=== PATIENT | female | born 1985 ===

== ENCOUNTER 2021-04-14 07:46 | Day surgery (SDC) | payer OTHER ==
[~2021-04-14 07:46] MED LIST: ACETAMINOPHEN 500 MG TAB PO SCH; CELECOXIB 200 MG CAP PO NR; GABAPENTIN 300 MG CAP PO NR; LACTATED RINGERS 1,000 ML IV SCH; MIDAZOLAM 2 MG/2 ML INJ IV NR; SCOPOLAMINE TRANSDERMAL PATCH 72 HR TD NR
[2021-04-14] MEDS ORDERED: LIDOCAINE MPF (2%) 20 MG/1 ML VIAL 5 ML ONE (09:08)
[2021-04-14] MEDS ORDERED: fentaNYL 100 MCG/2 ML INJ ONE (09:08)
[2021-04-14] MEDS ORDERED: propofoL 200 MG/20 ML VIAL IV ONE (09:09)
[2021-04-14] MEDS ORDERED: HYDROmorphone 1 MG/1 ML INJ IV PRN (09:11)
[2021-04-14] MEDS ORDERED: ONDANSETRON 4 MG/2 ML INJ IV PRN (09:11)
--- NOTE | 2021-04-14 09:11 | Anesthesia Day of Surgery ---
Anesthesia Day of Surgery - Day of Surgery Patient Examined: Yes Patient H&P Reviewed: Yes Patient is NPO: Yes
--- NOTE | 2021-04-14 09:11 | Anesthesia Consultation ---
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
[2021-04-14] MEDS ORDERED: BUPIVACAINE/PF (0.5%) 5 MG/1 ML 30 ML VIAL INFILTRATI ONE ×2 (10:08→10:55)
[2021-04-14] MEDS ORDERED: ONDANSETRON 4 MG/2 ML INJ ONE (10:30)
[2021-04-14] MEDS ORDERED: NEOSTIGMINE 10MG/10 ML INJ MDV ONE (10:30)
[2021-04-14] MEDS ORDERED: dexAMETHasone 20 MG/5 ML VIAL ONE (10:30)
[2021-04-14] MEDS ORDERED: GLYCOPYRROLATE 0.4 MG/2 ML INJ ONE (10:30)
[2021-04-14] MEDS ORDERED: ROCURONIUM 50 MG/5 ML INJ IV ONE (10:40)
[2021-04-14] MEDS ORDERED: SUCCINYLCHOLINE CHLORIDE 200 MG/10 ML INJ MDV ONE (10:40)
[2021-04-14] MEDS ORDERED: PHENYLEPHRINE/NS 1,000 MCG/10 ML SYRINGE (OR USE) IV ONE (10:52)
[2021-04-14] MEDS ORDERED: SODIUM CHLORIDE 0.9% IRR 1,500 ML BOTTLE IR ONE (10:55)
--- NOTE | 2021-04-14 11:12 | Post Operative Note ---
Date of procedure: 04/14/21 Pre-op diagnosis: Sterilization Post-op diagnosis: same Findings: Normal retroverted uterus, normal tubes, normal ovaries. General abdominal survey was within normal limits. No grossly concerning masses or lesions noted throughout. Procedure: Indication: This is a 35-year-old -1-0-3 who desires sterilization. As result patient is here for her laparoscopic bilateral tubal ligation with Filshie clips. Procedure: Laparoscopic bilateral tubal ligation. Patient taken the operating room and prepped and draped in usual fashion. Attention was first turned vaginally where single-tooth tenaculum was applied to the anterior lip of the cervix and an acorn uterine manipulator was placed. Attention was now turned abdominally where a 5 mm incision was made in the umbilicus. Veres needle then placed in the abdominal cavity. The abdomen was appropriately insufflated with CO2 gas. Veres needle removed and the 5 mm trocar was placed in abdominal cavity. Placement confirmed with the camera. Attention was turned suprapubically where an 8 mm incision was made and the 8 mm trocar was placed suprapubically in the midline under direct visualization. Trocar placed successfully and without difficulty. Attention was first turned to assess in the abdomen and pelvis. Findings noted above. Attention turned to the tubal ligation where a Filshie clip was applied to each tube. Each clip encompassed the full width of the tube on each side and good hemostasis was noted afterwards on both sides. At this point the abdomen was fully desufflated. Trochars were removed. Trocar sites were closed with 4-0 Vicryl in a subcuticular fashion followed by Marcaine. The acorn uterine manipulator and single-tooth tenaculum were removed. Procedure concluded at this point. Patient tolerated the procedure well. All instrument lap counts were correct. Patient taken to the recovery room in stable condition. Anesthesia: GETA Surgeon: TRENTON BAKER Estimated blood loss: minimal Pathology: none Condition: stable Disposition: PACU
--- NOTE | 2021-04-14 11:14 | Short Stay Summary ---
Short Stay Documentation Date of service: 04/14/21 Narrative H&P: Patient presented on 04/14/2021 for scheduled laparoscopic bilateral tubal ligation with Filshie clips. Surgery was successful and uncomplicated. Please see op report for details. Patient sent home with instructions to follow-up in 2 weeks. - History H&P: obtained from office - Allergies and Medications Current Medications: Allergies No Known Allergies Allergy (Unverified 04/07/21 17:49) Home Medications Medication Instructions Recorded Confirmed Last Taken Type No Known Home Medications [No 04/07/21 04/07/21 Unknown History Reported Home Medications] Active Medications Acetaminophen (Acetaminophen 500 Mg Tab) 1,000 mg PO PREOP VIANCA Stop: 04/14/21 23:59 Last Admin: 04/14/21 08:55 Dose: 1,000 mg Documented by: Celecoxib (Celecoxib 200 Mg Cap) 200 mg PO PREOP NR Stop: 04/14/21 23:59 Last Admin: 04/14/21 08:55 Dose: 200 mg Documented by: Gabapentin (Gabapentin 300 Mg Cap) 300 mg PO PREOP NR Stop: 04/14/21 23:59 Last Admin: 04/14/21 08:55 Dose: 300 mg Documented by: Hydromorphone HCl (Hydromorphone 1 Mg/1 Ml Inj) 0.5 mg IV Q10MIN PRN PRN Reason: Pain , Severe (7-10) Stop: 04/14/21 20:00 Lactated Ringer's (Lactated Ringers) 1,000 mls @ 100 mls/hr IV DIRECT VIANCA Stop: 04/14/21 23:59 Last Admin: 04/14/21 09:05 Dose: 100 mls/hr Documented by: Midazolam HCl (Midazolam 2 Mg/2 Ml Inj) 2 mg IV PREOP NR Stop: 04/14/21 23:59 Ondansetron HCl (Ondansetron 4 Mg/2 Ml Inj) 4 mg IV ONCE PRN PRN Reason: Nausea And Vomiting Stop: 04/14/21 16:00 Scopolamine (Scopolamine Transdermal Patch 72 Hr) 1 each TD PREOP NR Stop: 04/17/21 23:59 Last Admin: 04/14/21 08:59 Dose: 1 each Documented by: - Disposition Condition at discharge: Stable Disposition: DC-01 TO HOME OR SELFCARE Short Stay Discharge Plan Follow up with: PRIMARY CARE, [Primary Care Provider] - 7 Days
[2021-04-14 12:52] VITALS: BP 131/74
--- NOTE | 2021-04-14 14:24 | Post Anesthesia Evaluation ---
- Post Anesthesia Evaluation Patient Participated: Yes Airway Patent: Yes Stable Respiratory Function: Yes Nausea/Vomiting: No Temp > 96.8F: Yes Pain Manageable: Yes Adequeate Hydration: Yes Anesthesia Complications: No
== END 2021-04-14 07:47 | disposition home or self-care (01) ==
LOC: OR 07:46
PROVIDERS: ATTEND Obstetrics & Gynecology
DX: Z30.2 Encounter for sterilization (principal); N18.2 Chronic kidney disease, stage 2 (mild); Z79.899 Other long term (current) drug therapy; Z98.890 Other specified postprocedural states; Z83.3 Family history of diabetes mellitus; Z85.528 Personal history of other malignant neoplasm of kidney
CPT/HCPCS: 58671; 81025; J0330; J1100; J2370; J2405; J2704; J2710; J3010; J7120; J2250

== ENCOUNTER 2021-06-29 10:01 | Day surgery (SDC) | payer OTHER ==
[2021-06-29 10:23] LABS: Basophils % (Auto) 0.4 % (0.0-1.8); Eosinophils # (Auto) 0.1 K/mm3 (0.0-0.4); Eosinophils % (Auto) 1.7 % (0.0-4.3); Hematocrit 34.8 % (30.3-42.9); Hemoglobin 12.1 gm/dl (10.1-14.3); Lymphocytes # (Auto) 1.9 K/mm3 (1.2-5.4); Lymphocytes % (Auto) 31.7 % (13.4-35.0); Mean Corpuscular HGB Conc 35 % (30-34); Mean Corpuscular Volume 87 fl (79-97); Monocytes # (Auto) 0.3 K/mm3 (0.0-0.8); Monocytes % (Auto) 4.7 % (0.0-7.3); Platelet Count 177 K/mm3 (140-440); Red Blood Count 4.02 M/mm3 (3.65-5.03); Red Cell Distribution Width 13.9 % (13.2-15.2)
[2021-06-29 10:31] LABS: INR 0.98 (0.87-1.13)
[2021-06-29 10:32] LABS: Partial Thromboplastin Time 33.7 Sec. (24.2-36.6)
[2021-06-29] MEDS ORDERED: HYDROmorphone 1 MG/1 ML INJ IV NR (10:58)
[2021-06-29] MEDS ORDERED: ONDANSETRON 4 MG/2 ML INJ IV NR (10:59)
--- NOTE | 2021-06-29 14:26 | Cat Scan Report ---
CT-guided left renal biopsy INDICATION : Glomerular disorder. COMPARISON: None PROCEDURE: The risks (including but not limited to bleeding and infection) and benefits were explain ed to the patient and informed consent was obtained. All CT scans at this location are performed usi ng CT dose reduction for NIRAVRA by means of automated exposure control. A time out procedure was performed. The procedure site was prepped and draped in the usual sterile f ashion and lidocaine was used for local anesthesia. With the patient prone and utilizing a posterior approach under direct CT guidance, a 17-gauge coaxia l needle was advanced to the posterior margin of the lower pole of the left kidney. An 18-gauge biops y needle was then used to obtain 2 separate biopsy samples. Samples were placed directly in a preserv ative solution and sent to pathology for further evaluation. Immediate postprocedure scanning showed a very small perinephric hematoma. The patient did not have any pain and the vital signs were stable. The patient tolerated the procedure well with no complications. IMPRESSION: Technically successful CT-guided left renal biopsy. Signer Name: Jean Lancaster MD Signed: 06/29/2021 2:21 PM Workstation Name: [id number]
[2021-06-29 14:33] VITALS: BP 97/57
== END 2021-06-29 15:10 | disposition home or self-care (01) ==
LOC: CATHLABREC 10:01
PROVIDERS: ATTEND Internal Medicine Nephrology
DX: N05.9 Unspecified nephritic syndrome with unspecified morphologic changes (principal); N08 Glomerular disorders in diseases classified elsewhere; N18.2 Chronic kidney disease, stage 2 (mild); E78.00 Pure hypercholesterolemia, unspecified; Z79.899 Other long term (current) drug therapy; Z98.51 Tubal ligation status; Z98.890 Other specified postprocedural states
CPT/HCPCS: 36415; 50200; 77012; 85025; 85610; 85730; J1170; J2405